=== PATIENT | female | born 1990 | race African-American/Black ===

== ENCOUNTER 2019-04-24 20:41 | Emergency (ER) | payer OTHER ==
--- NOTE | 2019-04-24 20:58 | PDOC ---
Rapid Medical Evaluation Chief Complaint: Vaginal Bleeding Time Seen by Provider: 04/24/19 20:53 Medical Evaluation: 04/24/19 20:54 I have performed a brief in-person evaluation of this patient. The patient presents with a chief complaint of:6weeks preg + cramping and thick tissue/ clots vag drainage Pertinent physical exam findings: abd soft/ NT I have ordered the following: CBC, HCG, TandScreen, US The patient will proceed to the ED for further evaluation. Discharge Disposition - Diagnosis Vaginal bleeding - Discharge Dispostion Condition at time of disposition: Stable - Referrals - Patient Instructions - Post Discharge Activity
[2019-04-24 21:03] VITALS: BP 123/59; PULSE 77; TEMP 98.3; BMI 22.9
[2019-04-24 21:48] LABS: BASO % 0.5 % (0-2.0); EOS % 1.6 % (0-4.5); HEMATOCRIT 31.9 % (32.4-45.2); HEMOGLOBIN 10.1 GM/dL (10.7-15.3); LYMPH % 25.3 % (8-40); MCH 23.7 pg (25.7-33.7); MCHC 31.7 g/dl (32.0-36.0); MEAN CELL VOLUME 74.6 fl (80-96); MEAN PLT VOLUME 9.8 fl (7.5-11.1); MONO % 8.6 % (3.8-10.2); PLATELET COUNT 240 K/MM3 (134-434); RBC 4.28 M/mm3 (3.60-5.2); RDW 20.1 % (11.6-15.6); WHITE BLOOD COUNT 7.9 K/mm3 (4.0-10.0)
[2019-04-24 22:02] LABS: PH,URINE 5.5 (5.0-8.0); URINE APPEARANCE CLEAR; URINE BILIRUBIN NEGATIVE (NEGATIVE); URINE COLOR YELLOW; URINE GLUCOSE (UA) NEGATIVE (NEGATIVE); URINE KETONE NEGATIVE (NEGATIVE); URINE LEUK ESTERASE NEGATIVE (NEGATIVE); URINE NITRITE NEGATIVE (NEGATIVE); URINE PROTEIN NEGATIVE (NEGATIVE); URINE UROBILINOGEN 0.2 mg/dL (0.2-1.0)
--- NOTE | 2019-04-24 22:19 | PDOC ---
History of Present Illness - General Chief Complaint: Vaginal Bleeding Stated Complaint: 6 WEEK PREG,VAGINAL BLEEDING Time Seen by Provider: 04/24/19 20:53 History Source: Patient Exam Limitations: No Limitations - History of Present Illness Initial Comments: 04/25/19 00:11 28 yo F approximately 6 weeks GA (LMP 03/10/2019; had first US with [facility] at [facility]) presents to the emergency department with vaginal bleeding. Per the patient, she has been having vaginal bleeding since this past Sunday (5 days) . The patient states it was initially bright red but has been dark brown for the past 3 days. Initially she had lower abdominal cramping but denies cramping today. Per the patient, she denies trauma. Denies the following: fever, chills, SOB, chest pain, nausea, vomiting, abdominal pain, dysuria, hematuria, diarrhea , and leg pain/swelling. Allergies: NKDA Past History - Past Medical History Allergies/Adverse Reactions: Allergies Allergy/AdvReac Type Severity Reaction Status Date / Time No Known Allergies Allergy Verified 04/24/19 20:57 Home Medications: Ambulatory Orders NK [No Known Home Medication] 04/24/19 COPD: No Other medical history: migrains - Reproductive History Is Patient Now?: Yes - Psycho Social/Smoking Cessation Hx Smoking History: Never smoked Have you smoked in the past 12 months: No Information on smoking cessation initiated: No Hx Alcohol Use: No Drug/Substance Use Hx: No Review of Systems - Review of Systems Able to Perform ROS?: Yes Is the patient limited Lithuanian proficient: No Constitutional: No: Chills, Diaphoresis, Fever, Weakness HEENTM: No: Eye Pain, Ear Pain, Nose Pain, Throat Pain, Mouth Pain Respiratory: No: Cough, Shortness of Breath, Hemoptysis Cardiac (ROS): No: Chest Pain, Lightheadedness, Palpitations, Syncope, Chest Tightness ABD/GI: No: Constipated, Diarrhea, Nausea, Rectal Bleeding, Vomiting, Tarry Stools : No: Burning, Dysuria, Hematuria, Incontinence Musculoskeletal: No: Back Pain, Joint Pain, Neck Pain Integumentary: No: Bruising, Erythema, Rash Neurological: No: Headache, Numbness, Tingling, Tremors Psychiatric: No: Change in Appetite Endocrine: No: Unexplained Weight Gain Hematologic/Lymphatic: No: Anemia *Physical Exam - Vital Signs Last Vital Signs Temp Pulse Resp BP Pulse Ox 98.3 F 77 17 123/59 L 100 04/24/19 20:54 04/24/19 20:54 04/24/19 20:54 04/24/19 20:54 04/24/19 20:54 - Physical Exam General Appearance: Yes: Nourished, Appropriately Dressed. No: Apparent Distress, Intoxicated HEENT: positive: EOMI, RENETTA, Normal Voice, Symmetrical, Pharynx Normal, Hearing Grossly Normal. negative: Pale Conjunctivae, Scleral Icterus (R), Scleral Icterus (L), Muffled/Hoarse voice, Pharyngeal Erythema, Tonsillar Exudate, Tonsillar Erythema, Nasal Congestion, Rhinorrhea, Sinus Tenderness, Excessive drooling Neck: positive: Trachea midline, Supple. negative: Tender, Lymphadenopathy (R) , Lymphadenopathy (L), Tender lateral, Tender midline Respiratory/Chest: positive: Lungs Clear, Normal Breath Sounds. negative: Chest Tender, Respiratory Distress, Accessory Muscle Use Cardiovascular: positive: Regular Rhythm, Regular Rate, S1, S2. negative: Systolic Murmur Female Pelvic Exam: positive: normal external exam, cervical os closed, other ( old blood in vaginal vault. Chaperoned by Siva ) Gastrointestinal/Abdominal: positive: Normal Bowel Sounds, Flat, Soft. negative : Tender Lymphatic: negative: Adenopathy Musculoskeletal: positive: Normal Inspection. negative: CVA Tenderness, Vertebral Tenderness Extremity: positive: Normal Capillary Refill, Normal Inspection, Normal Range of Motion. 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, Fully Oriented, Alert, Normal Mood/ Affect, Motor Strength 5/5 ED Treatment Course - LABORATORY CBC & Chemistry Diagram: 04/24/19 21:25 04/24/19 21:25 - ADDITIONAL ORDERS Additional order review: Laboratory Results 04/24/19 21:40 Urine Color Yellow Urine Appearance Clear Urine pH 5.5 Ur Specific [place] 1.011 Urine Protein Negative Urine Glucose (UA) Negative Urine Ketones Negative Urine Blood Negative Urine Nitrite Negative Urine Bilirubin Negative Urine Urobilinogen 0.2 Ur Leukocyte Esterase Negative 04/24/19 21:25 RBC 4.28 MCV 74.6 L MCHC 31.7 L RDW 20.1 H MPV 9.8 Neutrophils % 64.0 Lymphocytes % 25.3 Monocytes % 8.6 Eosinophils % 1.6 Basophils % 0.5 - RADIOLOGY Radiology Studies Ordered: Category Date Time Status TRANSVAGINAL US PREG [US] Stat Ultrasound 04/24/19 21:40 Ordered Medical Decision Making - Medical Decision Making 28 yo F approximately 6 weeks GA (LMP 03/10/2019; had first US with OBGYN at [facility]) presents to the emergency department with vaginal bleeding. Initial vitals: Initial Vital Signs Temp Pulse Resp BP Pulse Ox 98.3 F 77 17 123/59 L 100 04/24/19 20:54 04/24/19 20:54 04/24/19 20:54 04/24/19 20:54 04/24/19 20:54 Work up: TVUS, cbc, cmp, bhcg, ts, ua, urine culture Laboratory Tests 04/24/19 04/24/19 04/24/19 21:25 21:25 21:25 WBC 7.9 RBC 4.28 Hgb 10.1 L Hct 31.9 L MCV 74.6 L MCH 23.7 L MCHC 31.7 L RDW 20.1 H Plt Count 240 MPV 9.8 Absolute Neuts (auto) 5.0 Neutrophils % 64.0 Lymphocytes % 25.3 Monocytes % 8.6 Eosinophils % 1.6 Basophils % 0.5 Nucleated RBC % 0 Sodium 136 Potassium 3.7 Chloride 105 Carbon Dioxide 24 Anion Gap 7 L BUN 7.6 Creatinine 0.5 L Est GFR (CKD-EPI)AfAm 154.81 Est GFR (CKD-EPI)NonAf 133.57 Random Glucose 87 Calcium 8.9 Total Bilirubin 0.2 AST 11 L ALT 17 Alkaline Phosphatase 45 Total Protein 6.8 Albumin 3.6 Beta HCG, Quant 84563.8 Urine Color Urine Appearance Urine pH Ur Specific [place] Urine Protein Urine Glucose (UA) Urine Ketones Urine Blood Urine Nitrite Urine Bilirubin Urine Urobilinogen Ur Leukocyte Esterase Blood Type A POSITIVE Antibody Screen Negative 04/24/19 21:40 WBC RBC Hgb Hct MCV MCH MCHC RDW Plt Count MPV Absolute Neuts (auto) Neutrophils % Lymphocytes % Monocytes % Eosinophils % Basophils % Nucleated RBC % Sodium Potassium Chloride Carbon Dioxide Anion Gap BUN Creatinine Est GFR (CKD-EPI)AfAm Est GFR (CKD-EPI)NonAf Random Glucose Calcium Total Bilirubin AST ALT Alkaline Phosphatase Total Protein Albumin Beta HCG, Quant Urine Color Yellow Urine Appearance Clear Urine pH 5.5 Ur Specific [place] 1.011 Urine Protein Negative Urine Glucose (UA) Negative Urine Ketones Negative Urine Blood Negative Urine Nitrite Negative Urine Bilirubin Negative Urine Urobilinogen 0.2 Ur Leukocyte Esterase Negative Blood Type Antibody Screen UA negative bhcg 05361 TVUS shows SIUP. Patient instructed to follow up with OBGYN or our department in 48 hours for recheck. Patient was pain free at discharge and able to ambulate on her own volition. Dispo: Discharge Discharge - Discharge Information Problems reviewed: Yes Clinical Impression/Diagnosis: Vaginal bleeding Condition: Stable Disposition: HOME - Admission No - Follow up/Referral Referrals: Janiya Moreno MD [Staff Physician] - [facility] [place] [Provider Group] - Patient Discharge Instructions Patient Printed Discharge Instructions: DI for Vaginal Bleeding During Additional Instructions: You were seen in the emergency department for [place]. [place] [address] and you have a single intrauterine based on ultrasound. Please follow up with your primary medical doctor within 1 week after discharge. Please follow up with your OBGYN physician or with our department in 48 hours for a recheck of your bhcg. Thank you. - Post Discharge Activity Work/Back to School Note: Back to Work
[2019-04-24 22:35] LABS: ALBUMIN 3.6 g/dl (3.4-5.0); BILIRUBIN,TOTAL 0.2 mg/dL (0.2-1); BLOOD UREA NITROGEN 7.6 mg/dL (7-18); CALCIUM 8.9 mg/dL (8.5-10.1); CREATININE 0.5 mg/dL (0.55-1.3); POTASSIUM 3.7 mmol/L (3.5-5.1); TOT PROT 6.8 g/dl (6.4-8.2)
--- NOTE | 2019-04-24 23:37 | PDOC ---
Attending Attestation - Resident Resident Name: Clive Nunez - ED Attending Attestation I have performed the following: I have examined & evaluated the patient, The case was reviewed & discussed with the resident, I agree w/resident's findings & plan, Exceptions are as noted - HPI HPI: 04/24/19 23:33 28y F A0 presents with complaint of abd cramping and vag spoting. pt denies any f/c, back pain. 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
== END 2019-04-24 23:50 | disposition home or self-care (01) ==
LOC: JER 20:41
DX: O26.891 Other specified pregnancy related conditions, first trimester (principal); O20.8 Other hemorrhage in early pregnancy; Z3A.01 Less than 8 weeks gestation of pregnancy
CPT/HCPCS: 36415; 76817-TC; 80053; 81003; 84702; 85025; 86850; 86900; 86901; 87086; 99283-25

== ENCOUNTER 2019-04-26 13:47 | Emergency (ER) | payer OTHER ==
[2019-04-26 13:54] VITALS: BP 107/51; PULSE 89; TEMP 98.5; BMI 22.9
--- NOTE | 2019-04-26 14:56 | PDOC ---
History of Present Illness - General Chief Complaint: Revisit, Lab Variance Stated Complaint: REPEAT LABS Time Seen by Provider: 04/26/19 14:14 History Source: Patient Exam Limitations: No Limitations - History of Present Illness Is this a multiple visit Asthma Patient?: No Past History - Travel Traveled outside of the country in the last 30 days: No - Past Medical History Allergies/Adverse Reactions: Allergies Allergy/AdvReac Type Severity Reaction Status Date / Time No Known Allergies Allergy Verified 04/26/19 13:50 Home Medications: Ambulatory Orders NK [No Known Home Medication] 04/24/19 COPD: No - Psycho Social/Smoking Cessation Hx Smoking History: Never smoked Have you smoked in the past 12 months: No Hx Alcohol Use: No Drug/Substance Use Hx: No Review of Systems - Review of Systems Constitutional: No: Chills, Fever ABD/GI: No: Abdominal Distended, Abd. 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 Patient presented initially to the emergency room 2 days ago for vaginal bleeding. She is 6 weeks . Pain at the time was 71,000 subsequent sonogram to confirm an IUP with FH. She is here for repeat beta, she denies pelvic pain, still spotting but no clots or heavy bleeding. she denies pelvic pain or cramping and has no complaints today 04/26/19 16:00 Patient is 91,000 today SAB precautions given f/u with [employer] 04/26/19 18:56 Discharge - Discharge Information Problems reviewed: Yes Clinical Impression/Diagnosis: Threatened in early Condition: Poor Disposition: HOME - Admission No - Additional Discharge Information Prescription Drug Monitoring Program (I-STOP) results: I-STOP not reviewed - Follow up/Referral - Patient Discharge Instructions Additional Instructions: [place] [address] Please follow up with your [employer] continue taking your vitamins Return to the emergency room if worsening bleeding occurs - Post Discharge Activity Work/Back to School Note: Back to Work
== END 2019-04-26 16:27 | disposition home or self-care (01) ==
LOC: JERFT 13:47
DX: O26.891 Other specified pregnancy related conditions, first trimester (principal); O20.0 Threatened abortion; Z3A.01 Less than 8 weeks gestation of pregnancy
CPT/HCPCS: 36415; 84702; 99281-25

== ENCOUNTER 2024-04-25 07:31 | Emergency (ER) | payer SELFPAY ==
[2024-04-25 07:41] VITALS: BP 103/74; PULSE 82; RESP 18; TEMP 97.9; BMI 25.7
[2024-04-25] MEDS ORDERED: KETOROLAC TROMETHAMINE 30 MG/1 ML VIAL ONE (08:07)
[2024-04-25] MEDS ORDERED: ACETAMINOPHEN INJECTION 100 ML ONE (08:07)
[2024-04-25] MEDS ORDERED: METOCLOPRAMIDE HCL INJECTION 10 MG/2 ML VIAL ONE (08:07)
[2024-04-25] MEDS: SODIUM CHLORIDE 0.9% 500 ML INFUS.BAG IV ONE (08:20)
[2024-04-25] MEDS: METOCLOPRAMIDE HCL INJECTION 10 MG/2 ML VIAL IVPUSH ONE (08:21)
[2024-04-25] MEDS: KETOROLAC TROMETHAMINE 30 MG/1 ML VIAL IVPUSH ONE (08:22)
[2024-04-25] MEDS: ACETAMINOPHEN 1000 MG/100 ML BAG IVPB ONE (08:29)
== END 2024-04-25 09:09 | disposition home or self-care (01) ==
LOC: JER 07:31
PROC: 3E033NZ Introduction of Analgesics, Hypnotics, Sedatives into Peripheral Vein, Percutaneous Approach (ICD-10-PCS; principal; 2024-04-25)
PROC: 3E0333Z Introduction of Anti-inflammatory into Peripheral Vein, Percutaneous Approach (ICD-10-PCS; 2024-04-25)
PROC: 3E033GC Introduction of Other Therapeutic Substance into Peripheral Vein, Percutaneous Approach (ICD-10-PCS; 2024-04-25)
DX: G43.909 Migraine, unspecified, not intractable, without status migrainosus (principal)
CPT/HCPCS: 99284-25; J0131